=== PATIENT | female | born 1985 | race Two or more races ===

== ENCOUNTER 2021-11-12 18:54 | Emergency (ER) | payer OTHER ==
[~2021-11-12] VITALS: Ht 160 cm; Wt 98.9 kg
--- NOTE | 2021-11-12 18:58 | NUR ---
BIB [facility],C/O PAIN IN SUB-MAMMARY AREA WHILE DRIVING. PT DENIES ANY TRAUMA, PAIN IS 9/10 ON PAIN SCALE. VITALS ARE WITHIN NORMAL LIMITS. DR GARDUNO AT BEDSIDE FOR EXAMINATION ACCOMPANIED BY FEMALE NURSE. AWAITING MD ORDERS.
--- NOTE | 2021-11-12 19:11 | NUR ---
IV ESTABLISHED R AC 20G. LABS DRAWN AND SENT.
--- NOTE | 2021-11-12 19:32 | NUR ---
RECEIVED PATIENT AAOX4. WITH CC OF LEFT LOWER CHEST PAIN. - SIGNS OF TRAUMA, -SOB. PATIENT CLAIMED THAT IT IS SO SUDDEN. -RADIATING. PLACED COMFORTABLY IN BED. VITALS CHECKED. PATIENT HAS IV CANNULA G18 ON RIGHT HAND.
--- NOTE | 2021-11-12 19:34 | NUR ---
XRAY DONE AT BEDSIDE
[2021-11-12 19:44] LABS: BASOPHILS # (AUTO) 0.1 K/uL (0.0-0.2); BASOPHILS % (AUTO) 1.1 % (0.0-2.0); EOSINOPHILS % (AUTO) 2.3 % (0.0-6.0); HEMATOCRIT 39 % (33-45); HEMOGLOBIN 12.3 g/dL (11.5-14.8); LYMPHOCYTES # (AUTO) 3.8 K/uL (0.8-4.8); LYMPHOCYTES % (AUTO) 31.8 % (20.0-44.0); MEAN CORPUSCULAR HGB CONC 32 g/dl (31.0-36.0); MEAN CORPUSCULAR VOLUME 82 fL (82-100); MONOCYTES # (AUTO) 0.7 K/uL (0.1-1.30); MONOCYTES % (AUTO) 5.8 % (2.0-12.0); NEUTROPHILS # (AUTO) 7.1 K/uL (1.8-8.9); PLATELET COUNT (AUTO) 350 K/uL (150-450); RED BLOOD CELL COUNT(AUTO) 4.71 MIL/uL (4.0-5.2); WHITE BLOOD COUNT (AUTO) 12.1 K/uL (4.3-11.0)
[2021-11-12 20:23] LABS: CALCIUM, SERUM 9.2 mg/dL (8.5-10.1); CREATININE 0.8 mg/dL (0.6-1.3); POTASSIUM 3.6 mmol/L (3.5-5.1)
[2021-11-12] MEDS ORDERED: KETOROLAC TROMETHAMINE INJ 30 MG/ML VIAL ONE (20:59)
[2021-11-12] MEDS ORDERED: KETOROLAC TROMETHAMINE INJ 30 MG/ML VIAL IV ONE (21:00)
--- NOTE | 2021-11-12 21:05 | NUR ---
PAIN MEDS GIVEN
--- NOTE | 2021-11-12 21:16 | NUR ---
REPEAT TROP DONE
--- NOTE | 2021-11-12 22:22 | NUR ---
PATIENT IS WORRIED THAT SHE HAS THE EFFECT OF 1 CHIP CHALLENGE THAT SHE HAD A SMALL PIECE YESTERDAY. IT'S A VERY SPICY PIECE OF CHIPS THAT COULD CAUSE GI BLEEDING. TOLD PATIENT THAT SHE SHOULD NOT WORRY ABOUT IT SINCE SHE DOESNT HAVE SIGNS THAT SHE HAS BLEEDING INTERNALLY
[2021-11-12] MEDS ORDERED: TRAM50TA2 PO (22:38)
[2021-11-12] MEDS ORDERED: IBUP-1955 PO (22:38)
--- NOTE | 2021-11-12 22:56 | NUR ---
IV CANNULA REMOVED
[2021-11-12 22:57] VITALS: BP 146/123
--- NOTE | 2021-11-12 22:57 | NUR ---
Patient discharged to home in stable condition. Written and verbal after care instructions given. Patient verbalizes understanding of instruction.
[2021-11-12] MEDS ORDERED: HYDROCODONE/APAP 5/325MG TABLET PO ONE (23:00)
== END 2021-11-12 22:58 | disposition home or self-care (01) ==
LOC: ER 19:05
DX: R07.89 Other chest pain (principal); R73.9 Hyperglycemia, unspecified; J45.909 Unspecified asthma, uncomplicated; F41.9 Anxiety disorder, unspecified; Z90.710 Acquired absence of both cervix and uterus; Z90.89 Acquired absence of other organs; Z88.8 Allergy status to other drugs, medicaments and biological substances; Z79.899 Other long term (current) drug therapy
CPT/HCPCS: 99285; 96374; 93005; 71100; 85025; 80048; 85378; 36415; 84484 ×2; J1885